=== PATIENT | male | born 1975 | race Hispanic/Latino ===

== ENCOUNTER 2019-05-04 11:47 | Emergency (ER) | payer OTHER ==
[2019-05-04] MEDS ORDERED: Sodium Chloride 0.9% 10 ML Syringe FLUSH PRN ×2 (12:48→12:54)
--- NOTE | 2019-05-04 12:52 | EDM.PDOC ---
ED HPI GENERAL MEDICAL PROBLEM - General Chief Complaint: Lower Extremity Injury/Pain Stated Complaint: SENT BY VANNESSA CASTANON Time Seen by Provider: 05/04/19 12:24 Source of Information: Reports: Patient History Limitations: Reports: No Limitations - History of Present Illness INITIAL COMMENTS - FREE TEXT/NARRATIVE: Patient is a 43-year-old male who presents with complaints of intermittent left- sided chest pain and dizziness. He also complains of pain and tenderness to his left posterior calf. Patient states that symptoms of left-sided chest pain and dizziness occurred on Tuesday and Tuesday of this week. They have subsided and yesterday and today he has been asymptomatic with regard to this. He states when the chest pain was occurring, he did have some shortness of breath associated with it. Pt would hit himself in the chest and the pain seemed to improve. Prior to coming to the ER, patient was seen in the orthopedic clinic by Vannessa Love. She recommended that he come to the ER to rule out blood clots. Patient had left ankle surgery with Dr. Rubio in [place] on April 09. Patient is currently taking Loretto as needed for pain. He denies any chest pain or shortness of breath at the time of exam. Left Lower Leg Pain Score (Numeric/FACES): 3 - Related Data Allergies Allergy/AdvReac Type Severity Reaction Status Date / Time No Known Allergies Allergy Verified 05/04/19 12:23 Home Meds: Home Meds Hydrocodone/Acetaminophen [Hydrocodon-Acetaminophn 10-325] 1 tab PO Q6HR [History] Rivaroxaban [Xarelto] 15 mg PO BID #41 tab 05/04/19 [Rx] Past Medical History Cardiovascular History: Reports: Hypertension Respiratory History: Reports: Asthma - Past Surgical History GI Surgical History: Reports: Appendectomy Other Musculoskeletal Surgeries/Procedures:: ankle fusion on left Social & Family History - Tobacco Use Smoking Status *Q: Never Smoker - Caffeine Use Caffeine Use: Reports: None - Recreational Drug Use Recreational Drug Use: No Review of Systems - Review of Systems Review Of Systems: Comprehensive ROS is negative, except as noted in HPI. ED EXAM, GENERAL - Physical Exam Exam: See Below Exam Limited By: No Limitations General Appearance: Alert, WD/WN, No Apparent Distress Respiratory/Chest: No Respiratory Distress, Lungs Clear, Normal Breath Sounds, No Accessory Muscle Use, Chest Non-Tender Cardiovascular: Normal Peripheral Pulses, Regular Rate, Rhythm, No Edema, No Gallop, No JVD, No Murmur, No Rub Extremities: Other (Lionel wrap intact to left ankle. Tenderness to palpation to the left posterior calf and popliteal fossa. No obvious edema to the left lower extremity.) Neurological: Alert, Oriented, CN II-XII Intact, Normal Cognition, Normal Gait, Normal Reflexes, No Motor/Sensory Deficits Psychiatric: Normal Affect, Normal Mood Skin Exam: Warm, Dry, Intact, Normal Color, No Rash Course - Vital Signs Last Recorded V/S: Last Vital Signs Temp 98.4 F 05/04/19 12:25 Pulse 83 05/04/19 15:09 Resp 13 05/04/19 12:25 BP 156/82 H 05/04/19 15:09 Pulse Ox 98 05/04/19 15:09 - Orders/Labs/Meds Orders: Active Orders 24 hr Category Date Time Status EKG Documentation Completion [RC] STAT Care 05/04/19 12:48 Active Peripheral IV Care [RC] . DIRECTED Care 05/04/19 12:48 Active Peripheral IV Insertion Adult [OM.PC] Stat Oth 05/04/19 12:47 Ordered Labs: Laboratory Tests 05/04/19 05/04/19 05/04/19 Range/Units 13:05 13:05 13:05 WBC 5.89 (4.23-9.07) K/mm3 RBC 4.74 (4.63-6.08) M/mm3 Hgb 14.4 (13.7-17.5) gm/dl Hct 42.5 (40.1-51.0) % MCV 89.7 (79.0-92.2) fl MCH 30.4 (25.7-32.2) pg MCHC 33.9 (32.2-35.5) g/dl RDW Std Deviation 44.4 H (35.1-43.9) fL Plt Count 282 (163-337) K/mm3 MPV 8.4 L (9.4-12.3) fl Neut % (Auto) 54.6 (34.0-67.9) % Lymph % (Auto) 29.7 (21.8-53.1) % [place] % (Auto) 9.7 (5.3-12.2) % Eos % (Auto) 5.4 (0.8-7.0) Baso % (Auto) 0.3 (0.1-1.2) % Neut # (Auto) 3.21 (1.78-5.38) K/mm3 Lymph # (Auto) 1.75 (1.32-3.57) K/mm3 [place] # (Auto) 0.57 (0.30-0.82) K/mm3 Eos # (Auto) 0.32 (0.04-0.54) K/mm3 Baso # (Auto) 0.02 (0.01-0.08) K/mm3 D-Dimer, Quantitative 1.03 H (0.19-0.50) mg/L Sodium 141 (136-145) mEq/L Potassium 4.3 (3.5-5.1) mEq/L Chloride 105 (98-107) mEq/L Carbon Dioxide 28 (21-32) mEq/L Anion Gap 12.3 (5-15) BUN 15 (7-18) mg/dL Creatinine 1.2 (0.7-1.3) mg/dL Est Cr Clr Drug Dosing 94.19 mL/min Estimated GFR (MDRD) > 60 (>60) mL/min BUN/Creatinine Ratio 12.5 L (14-18) Glucose 99 (74-106) mg/dL Calcium 9.2 (8.5-10.1) mg/dL Total Bilirubin 0.3 (0.2-1.0) mg/dL AST 24 (15-37) U/L ALT 57 (16-63) U/L Alkaline Phosphatase 92 (46-116) U/L Troponin I < 0.017 (0.00-0.056) ng/mL C-Reactive Protein 0.4 (<1.0) mg/dL Total Protein 7.5 (6.4-8.2) g/dl Albumin 3.5 (3.4-5.0) g/dl Globulin 4.0 gm/dL Albumin/Globulin Ratio 0.9 L (1-2) Meds: Medications Discontinued Medications Generic Name Dose Route Start Last Admin Trade Name Freq PRN Reason Stop Dose Admin Sodium Chloride 100 mls @ 75 mls/hr 05/04/19 13:00 05/04/19 14:03 Normal Saline IV 75 mls/hr ASDIRECTED DANIEL Administration Iopamidol 50 ml 05/04/19 12:54 05/04/19 14:03 Isovue-370 (76%) IVPUSH 05/04/19 12:55 50 ml ONETIME ONE Administration Iopamidol 100 ml 05/04/19 12:54 05/04/19 14:03 Isovue-370 (76%) IVPUSH 05/04/19 12:55 100 ml ONETIME ONE Administration Rivaroxaban 15 mg 05/04/19 14:01 05/04/19 14:29 Xarelto PO 05/04/19 14:02 15 mg ONETIME ONE Administration Sodium Chloride 10 ml 05/04/19 12:48 Saline Flush FLUSH ASDIRECTED PRN Keep Vein Open Sodium Chloride 10 ml 05/04/19 12:54 05/04/19 14:13 Saline Flush FLUSH 10 ml ONETIME PRN Administration IV FLUSH - Re-Assessments/Exams Free Text/Narrative Re-Assessment/Exam: 05/04/19 14:39 D-dimer was found to be elevated at 1.03. Ultrasound of the left lower extremity was positive for an incompletely occluding thrombus within the left popliteal vein. CT Nadira of the chest was negative for any findings of pulmonary embolus. Vital signs have been stable throughout his stay in the emergency department. EKG was negative for any acute changes. Troponin was negative. I have started the patient on Xarelto. I will write a prescription for the first 21 days of the medication. I did discuss with him that he must establish care with a primary care provider for ongoing monitoring of the DVT and medication management. Discharge instructions as documented. Departure - Departure Time of Disposition: 14:40 Disposition: Home, Self-Care 01 Condition: Good Clinical Impression: DVT (deep venous thrombosis) Qualifiers: DVT location: lower extremity Affected thrombotic vein of extremity: popliteal Chronicity: acute Laterality: left Qualified Code(s): I82.432 - Acute embolism and thrombosis of left popliteal vein - Discharge Information *PRESCRIPTION DRUG MONITORING PROGRAM REVIEWED*: No *COPY OF PRESCRIPTION DRUG MONITORING REPORT IN PATIENT RIP: No Prescriptions: Rivaroxaban [Xarelto] 15 mg PO BID #41 tab Instructions: Deep Vein Thrombosis Referrals: PCP,None [Primary Care Provider] - Forms: ED Department Discharge Additional Instructions: You were seen in the emergency department today after being sent by orthopedics with concerns of a possible blood clot. Your work-up included hematology, an EKG of your heart, and ultrasound of your left leg, as well as a CT angiogram of your chest. Your EKG was negative for any acute abnormalities. Your blood work was essentially normal with the exception of an elevated d-dimer which is consistent with a blood clot within your body. Ultrasound of your left leg did show a partially occluding blood clot in your popliteal vein. CT angiogram of your chest was negative for any pulmonary emboli. You have been started on Xarelto which is a blood thinner. Take this twice daily for the next 21 days. Additional medication will be required after the 21-day time and can be prescribed by primary care provider. Recommend that you call to establish care with a primary care provider and request a follow-up appointment for sometime next week. If you would like to schedule at the clinic here in [place], the phone [phone]. If you should experience any worsening symptoms of concern such as new onset of chest pain or shortness of breath, or any other concerning symptoms, please do not hesitate to return to the emergency department. Sepsis Event Note - Evaluation Sepsis Screening Result: No Definite Risk - Focused Exam Vital Signs: Vital Signs Temp Pulse Resp BP Pulse Ox 05/04/19 15:09 83 156/82 H 98 05/04/19 12:25 98.4 F 94 13 151/101 H 95 Date Exam was Performed: 05/04/19 Time Exam was Performed: 21:48 - My Orders Last 24 Hours: My Active Orders 05/04/19 12:47 Peripheral IV Insertion Adult [OM.PC] Stat 05/04/19 12:48 EKG Documentation Completion [RC] STAT Peripheral IV Care [RC] . DIRECTED - Assessment/Plan Last 24 Hours: My Active Orders 05/04/19 12:47 Peripheral IV Insertion Adult [OM.PC] Stat 05/04/19 12:48 EKG Documentation Completion [RC] STAT Peripheral IV Care [RC] . DIRECTED
[2019-05-04] MEDS ORDERED: Iopamidol 755 MG/ML 50 ML Bottle IVPUSH ONE (12:54)
[2019-05-04] MEDS ORDERED: Iopamidol 755 Mg/ML 100 ML Bottle IVPUSH ONE (12:54)
[2019-05-04] MEDS ORDERED: Sodium Chloride 0.9% 100 ML IV SCH (13:00)
[2019-05-04] MEDS ORDERED: Rivaroxaban 15 MG Tab PO ONE (14:01)
--- NOTE | 2019-05-04 14:21 | US ---
Left lower extremity deep venous ultrasound: Duplex and color Doppler evaluation was obtained of the left common femoral, proximal greater saphenous, superficial femoral, popliteal, posterior tibial and peroneal veins. Incompletely occluding thrombus is seen within the popliteal vein within the mid and distal aspects. Other veins show normal compression and phasic flow. Impression: 1. Incompletely occluding thrombus within the left popliteal vein. Diagnostic code #5 This report was dictated in MDT
--- NOTE | 2019-05-04 14:28 | CT ---
CT chest Technique: Multiple axial sections through the chest were obtained. Intravenous contrast was utilized. Study has been performed as a pulmonary angiogram protocol. Findings: Pulmonary arteries are moderately well opacified. No filling defects are seen within the main or segmental branches to indicate pulmonary embolism. No pericardial thickening is seen. Aorta shows no aneurysm. Mediastinum shows no adenopathy. Visualized upper abdominal structures shows no discrete abnormality. Lungs show no acute parenchymal process. No pleural effusions are seen. Bone window settings were reviewed which shows no acute osseous finding. Impression: 1. No findings of pulmonary embolism. 2. Nothing acute is appreciated on CT study of the chest. Diagnostic code #1 This report was dictated in MDT
== END 2019-05-04 15:17 | disposition home or self-care (01) ==
LOC: JD.ED 11:47
DX: I82.432 Acute embolism and thrombosis of left popliteal vein (principal); I10 Essential (primary) hypertension
CPT/HCPCS: 36415; 71275; 80053; 84484; 85025; 85379; 86140; 93005; 93971; 96360; 99285; A9270; J7050; Q9967; 93010; 99284